=== PATIENT | male | born 1960 | race Caucasian/White ===

== ENCOUNTER 2019-01-19 10:33 | Inpatient (IN) | payer MEDICARE, BC ==
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
[2019-01-19] MEDS: Sodium Chloride 0.9% 10 ML Syringe FLUSH PRN ×4 (11:39→13:50)
[2019-01-19] MEDS ORDERED: Morphine 4 MG/ML Syringe IVPUSH ONE (12:07)
[2019-01-19] MEDS ORDERED: fentaNYL 100 MCG/2 ML SDV IVPUSH ONE (12:10)
[2019-01-19] MEDS ORDERED: Lidocaine 5% 700 MG Patch TOP ONE (12:11)
--- NOTE | 2019-01-19 12:31 | CR ---
CHEST: 2 view CLINICAL HISTORY:SOB COMPARISON:None FINDINGS: The heart is enlarged. Pulmonary vascular areas cephalized. There is a diffuse left perihilar infiltrate. There is some mild increase in the right lung markings. No effusions are seen. Impression: Moderate cardiomegaly with some vascular cephalization Prominent interstitial lung markings as well as a left perihilar alveolar infiltrate or edema. This may represent left lung pneumonia alone. Asymmetric pulmonary edema from CHF is not excluded .Clinical correlation necessary
[2019-01-19] MEDS ORDERED: Albuterol 0.083% 2.5 MG/3 ML Neb Soln NEB ONE (12:37)
[2019-01-19] MEDS ORDERED: Sodium Chloride 0.9% 100 ML IV SCH (12:45)
[2019-01-19] MEDS ORDERED: Iopamidol 755 Mg/ML 100 ML Bottle IV SCH (12:45)
[2019-01-19] MEDS ORDERED: Diltiazem 25 MG/5 ML SDV IVPUSH ONE (12:58)
[2019-01-19] MEDS: Furosemide 40 MG/4 ML VIAL ONE ×2 (13:39→13:44)
--- NOTE | 2019-01-19 14:10 | CT ---
Ang Chest CLINICAL HISTORY: Elevated d-dimer TECHNIQUE: Thin section axial contiguous tomographic sections were taken through the chest before and after 75 mL bolus IV iodinated contrast administration. Coronal and sagittal images were reconstructed. Prescribed dose FINDINGS: There are diffuse patchy bilateral pulmonary infiltrates and some groundglass opacifications. There is pleural-parenchymal scarring in the right lung base The heart is moderately enlarged. There is left atrial and left ventricular enlargement. No pulmonary embolus is identified. The aorta is less than optimally opacified. There are some atheromatous changes without the aneurysm or dissection is a 1.6 cm lymph node in the aortopulmonic window with an adjacent 2.1 cm node. The right paratracheal region is a 2.3 x 1.7 cm lymph node. IMPRESSION: Diffuse bilateral pulmonary infiltrates most notable in the left upper lobe. There are scattered patchy groundglass opacifications. These are all new since prior study this could represent diffuse pneumonia or pneumonitis. Atypical distribution pulmonary edema is felt less likely Nonspecific mediastinal lymphadenopathy described above Moderate cardiomegaly No evidence of pulmonary embolus Moderate atheromatous changes in the aorta Pleural thickening and pleural parenchymal scarring right lower lobe. Underlying pleural-based neoplasm cannot be excluded
[2019-01-19] MEDS ORDERED: Azithromycin 250 MG Tab PO ONE (14:29)
[2019-01-19] MEDS ORDERED: cefTRIAXone 2 GM in Sodium Chloride 0.9% 50 ML IV SCH (14:30)
--- NOTE | 2019-01-19 16:19 | PCM.HP ---
H&P History of Present Illness - General Date of Service: 01/19/19 Admit Problem/Dx: Admission Diagnosis/Problem Admission Diagnosis/Problem CHF, Congestive heart failure Source of Information: Patient, Provider History Limitations: Reports: No Limitations - History of Present Illness Initial Comments - Free Text/Narative: CC: I can't catch my breath HPI: Chas presented to the emergency room today with more than 2 weeks of progressive shortness of breath. He reports onset of symptoms that were initially fairly mild. He was only short of breath after some exertion. He had some tightness in his chest at that time but no reports of chest pain. Over the past 2+ weeks his shortness of breath has increased to the point that he is now short of breath even at rest. Shortness of breath increases when he bends over to tie his shoes. He does not report any chest pain and has not had chest pressure. No reports of orthopnea. He does have some mild lower extremity edema on the left leg. His prosthesis on the right fits like normal. He has an occasional dry cough. He thinks maybe he's had a couple of different days with fever but very minimal. He has not had any sputum production. Appetite has been slowly decreasing over the past 2 weeks. He does not check his weight regularly. No sick contacts or travel. No change in bowel or bladder habits. Workup in the emergency room was suggestive of congestive heart failure. He was also in atrial fibrillation with a rapid ventricular response. He has received furosemide and will be started on a diltiazem infusion. Antibiotic coverage with ceftriaxone and azithromycin. Chest x-ray/CT scan suggestive of asymmetric pulmonary edema versus atypical pneumonia. l hip Pain Score (Numeric/FACES): 2 - Related Data Allergies/Adverse Reactions: Allergies Allergy/AdvReac Type Severity Reaction Status Date / Time No Known Allergies Allergy Verified 01/19/19 10:49 Home Medications: Home Meds Tamsulosin [Tamsulosin 24 Hr] 0.4 mg PO DAILY 01/19/19 [History] Past Medical History Cardiovascular History: Reports: High Cholesterol, Hypertension Genitourinary History: Reports: Prostate Disorder Musculoskeletal History: Reports: Fracture, Other (See Below) Other Musculoskeletal History: ankle wrist Hematologic History: Reports: Blood Transfusion(s) Dermatologic History: Reports: Other (See Below) Other Dermatologic History: joshi 1979 - Infectious Disease History Infectious Disease History: Reports: Chicken Pox, Measles - Past Surgical History Male Surgical History: Reports: Kidney Stone Extraction Dermatological Surgical History: Reports: Plastic Surgical Reconstruction/Repair , Skin Graft Social & Family History - Family History Cardiac: Reports: Heart Failure (father) - Tobacco Use Smoking Status *Q: Current Every Day Smoker Years of Tobacco use: 40 Packs/Tins Daily: 1 Used Tobacco, but Quit: No Second Hand Smoke Exposure: Yes - Caffeine Use Caffeine Use: Reports: Tea - Alcohol Use Days Per Week of Alcohol Use: 0 - Recreational Drug Use Recreational Drug Use: No H&P Review of Systems - Review of Systems: Review Of Systems: See Below Free Text/Narrative: A complete 12 point review of systems was obtained. Pertinent positives and negatives are noted in the history of present illness. All other systems were reviewed and were negative except as noted. Exam - Exam Exam: See Below - Vital Signs Vital Signs: Last Vital Signs Temp 35.9 C 01/19/19 10:56 Pulse 71 01/19/19 15:27 Resp 25 H 01/19/19 15:27 BP 124/84 01/19/19 15:27 Pulse Ox 94 L 01/19/19 15:27 Weight: 110.3 kg - Exam Quality Assessment: No: Supplemental Oxygen General: Alert, Oriented, Cooperative, Mild Distress (mild increased work of breathing ) HEENT: Conjunctiva Clear. No: Mucosa Moist & [place], Scleral Icterus Neck: Supple, Trachea Midline, JVD. No: Lymphadenopathy Lungs: Normal Respiratory Effort, Crackles (mild both bases) Cardiovascular: Irregular Rhythm, Tachycardia, Gallop/S3. No: Systolic Murmur GI/Abdominal Exam: Normal Bowel Sounds, Soft, Non-Tender, No Distention Back Exam: No: Normal Inspection (skin graft right lower back ) Extremities: Pedal Edema (left lower leg from mid alvarez distally ), Other (right AKA). No: Increased Warmth Skin: Warm, Dry, Other (multiple old skin grafts on face, arms and chest ) Neuro Extensive - Mental Status: Alert, Oriented x3, Nl Response to Commands Neuro Extensive - Motor, Sensory, Reflexes: No: Dysarthria, Abnormal Motor, Tremor Psychiatric: Alert, Normal Affect - Patient Data Lab Results Last 24 hrs: Laboratory Results - last 24 hr 01/19/19 01/19/19 01/19/19 Range/Units 11:20 11:20 11:20 WBC 9.3 (4.5-11.0) K/uL RBC 4.22 L (4.30-5.90) M/uL Hgb 13.8 (12.0-15.0) g/dL Hct 40.4 (40.0-54.0) % MCV 96 (80-98) fL MCH 33 H (27-31) pg MCHC 34 (32-36) % Plt Count 130 L (150-400) K/uL Neut % (Auto) 64 (36-66) % Lymph % (Auto) 22 L (24-44) % [place] % (Auto) 12 H (2-6) % Eos % (Auto) 1 L (2-4) % Baso % (Auto) 1 (0-1) % PT 12.4 H (9.5-12.0) sec INR 1.14 (0.80-1.20) D-Dimer, Quantitative 1120 H (0.0-400.0) ng/mL Puncture Site ABG pH (7.350-7.450) ABG pCO2 (35.0-42.0) mmHg ABG pO2 (75.0-100.0) mmHg ABG HCO3 (22.0-26.0) mmol/L ABG Total CO2 (23.0-27.0) mmol/L ABG O2 Saturation (95.0-98.0) % ABG O2 Content (15.0-23.0) %vol ABG Base Excess mm/L ABG Hemoglobin (13.5-18.0) g/dL ABG Oxyhemoglobin % ABG Carboxyhemoglobin (0.0-1.6) % ABG Methemoglobin % Ryan Test O2 Delivery Device Sodium 136 L (140-148) mmol/L Potassium 3.4 L (3.6-5.2) mmol/L Chloride 100 (100-108) mmol/L Carbon Dioxide 27 (21-32) mmol/L Anion Gap 12.4 (5.0-14.0) mmol/L BUN 20 H (7-18) mg/dL Creatinine 0.8 (0.8-1.3) mg/dL Est Cr Clr Drug Dosing 110.47 mL/min Estimated GFR (MDRD) > 60 (>60) Glucose 96 (74-106) mg/dL Calcium 8.8 (8.5-10.1) mg/dL Magnesium (1.8-2.4) mg/dL Total Bilirubin 1.1 H (0.2-1.0) mg/dL AST 46 H (15-37) U/L ALT 70 (12-78) U/L Alkaline Phosphatase 84 (46-116) U/L Troponin I 0.029 (0.000-0.056) ng/mL C-Reactive Protein (0.0-0.3) mg/dL NT-Pro-B Natriuret Pep 2906 H (5-125) pg/mL Total Protein 6.6 (6.4-8.2) g/dL Albumin 3.2 L (3.4-5.0) g/dL Globulin 3.4 (2.3-3.5) g/dL Albumin/Globulin Ratio 0.9 L (1.2-2.2) 01/19/19 01/19/19 01/19/19 Range/Units 11:30 11:42 12:37 WBC (4.5-11.0) K/uL RBC (4.30-5.90) M/uL Hgb (12.0-15.0) g/dL Hct (40.0-54.0) % MCV (80-98) fL MCH (27-31) pg MCHC (32-36) % Plt Count (150-400) K/uL Neut % (Auto) (36-66) % Lymph % (Auto) (24-44) % [place] % (Auto) (2-6) % Eos % (Auto) (2-4) % Baso % (Auto) (0-1) % PT (9.5-12.0) sec INR (0.80-1.20) D-Dimer, Quantitative (0.0-400.0) ng/mL Puncture Site Lt radial ABG pH 7.533 H (7.350-7.450) ABG pCO2 26.5 L (35.0-42.0) mmHg ABG pO2 77.8 (75.0-100.0) mmHg ABG HCO3 22.2 (22.0-26.0) mmol/L ABG Total CO2 19.1 L (23.0-27.0) mmol/L ABG O2 Saturation 96.5 (95.0-98.0) % ABG O2 Content 18.4 (15.0-23.0) %vol ABG Base Excess 1.1 mm/L ABG Hemoglobin 13.8 (13.5-18.0) g/dL ABG Oxyhemoglobin 94.8 % ABG Carboxyhemoglobin 1.2 (0.0-1.6) % ABG Methemoglobin 0.6 % Ryan Test Passed O2 Delivery Device Room air Sodium (140-148) mmol/L Potassium (3.6-5.2) mmol/L Chloride (100-108) mmol/L Carbon Dioxide (21-32) mmol/L Anion Gap (5.0-14.0) mmol/L BUN (7-18) mg/dL Creatinine (0.8-1.3) mg/dL Est Cr Clr Drug Dosing mL/min Estimated GFR (MDRD) (>60) Glucose (74-106) mg/dL Calcium (8.5-10.1) mg/dL Magnesium 2.0 (1.8-2.4) mg/dL Total Bilirubin (0.2-1.0) mg/dL AST (15-37) U/L ALT (12-78) U/L Alkaline Phosphatase (46-116) U/L Troponin I (0.000-0.056) ng/mL C-Reactive Protein 10.59 H (0.0-0.3) mg/dL NT-Pro-B Natriuret Pep (5-125) pg/mL Total Protein (6.4-8.2) g/dL Albumin (3.4-5.0) g/dL Globulin (2.3-3.5) g/dL Albumin/Globulin Ratio (1.2-2.2) Result Diagrams: 01/19/19 11:20 01/19/19 11:20 Imaging Impressions Last 24 hrs: CXR - images personally reviewed - mild cardiomegally, interstitial infiltrates on the left (fluid vs infection). No mass or effusion CT chest - images personally reviewed - no PE. Cardiomegally. there are asymmetric interstitial infiltrates left > right (fluid vs infection). pleural thickening right lower lobe. EKG INTERPRETATION EKG Date: 01/19/19 Rhythm: A-Fib Rate (Beats/Min): 114 [place]: Normal P-Wave: Variable QRS: Normal ST-T: Other (inverted T in V5 and V6) Comparison: NA - No Prior EKG EKG Interpretation Comments: Image personally reviewed *Q Meaningful Use (ADM) - VTE Risk Assess *Q Each Risk Factor Represents 1 Point: Age 41 - 59 years, Obesity ( BMI > 25 kg/m2 ), Congestive heart failure (CHF) Total Score 1 Point Risk Factors: 3 Each Risk Factor Represents 2 Points: None Total Score 2 Point Risk Factors: 0 Each Risk Factor Represents 3 Points: None Total Score 3 Point Risk Factors: 0 Each Risk Factor Represents 5 Points: None Total Score 5 Point Risk Factors: 0 Venous Thromboembolism Risk Factor Score *Q: 3 - Problem List (1) CHF (congestive heart failure) SNOMED Code(s): 24506361 ICD Code: I50.9 - HEART FAILURE, UNSPECIFIED Status: Acute Priority: Medium Current Visit: Yes Problem Details: secondary to a fib Qualifiers: Heart failure type: unspecified Heart failure chronicity: acute Qualified Code(s): I50.9 - Heart failure, unspecified (2) Atrial fibrillation with RVR SNOMED Code(s): 032188423007670 ICD Code: I48.91 - UNSPECIFIED ATRIAL FIBRILLATION Status: Acute Current Visit: Yes (3) CAP (community acquired pneumonia) SNOMED Code(s): 052659141 ICD Code: J18.9 - PNEUMONIA, UNSPECIFIED ORGANISM Status: Acute Current Visit: Yes Qualifiers: Laterality: unspecified laterality Qualified Code(s): J18.9 - Pneumonia, unspecified organism Problem List Initiated/Reviewed/Updated: Yes Orders Last 24hrs: Active Orders 24 hr Category Date Time Status Patient Status Manage Transfer [TRANSFER] Routine ADT 01/19/19 16:05 Ordered Cardiac Monitoring [RC] .As Directed Care 01/19/19 11:09 Active EKG Documentation Completion [RC] ASDIRECTED Care 01/19/19 11:10 Active Height and Weight [RC] UPON Care 01/19/19 12:41 Active Peripheral IV Care [RC] . DIRECTED Care 01/19/19 11:10 Active RT Aerosol Therapy [RC] ASDIRECTED Care 01/19/19 12:37 Active Diltiazem 125MG in D5W @ 5 MG/HR(125ml) Med 01/19/19 16:15 Ordered Diltiazem 125 mg Dextrose 5% in Water 100 ml IV TITRATE Furosemide [Lasix] Med 01/20/19 12:43 Once 40 mg IVPUSH ONETIME ONE Sodium Chloride 0.9% [Saline Flush] Med 01/19/19 11:09 Active 10 ml FLUSH ASDIRECTED PRN cefTRIAXone [Rocephin] 2 gm Med 01/19/19 14:30 Active Sodium Chloride 0.9% [Normal Saline] 50 ml IV Q24H Peripheral IV Insertion Adult [OM.PC] Stat Oth 01/19/19 11:09 Ordered Resuscitation Status Routine Resus Stat 01/19/19 16:06 Ordered EKG 12 Lead [EK] Stat Ther 01/19/19 11:09 Ordered Medication Orders Furosemide (Lasix) 40 mg IVPUSH ONETIME ONE Stop: 01/20/19 12:44 Last Admin: 01/19/19 13:41 Dose: 40 mg Ceftriaxone Sodium 2 gm/ (Sodium Chloride) 50 mls @ 100 mls/hr IV Q24H DARIEN Last Admin: 01/19/19 15:20 Dose: 100 mls/hr Diltiazem HCl 125 mg/ Dextrose (/Water) 125 mls @ 5 mls/hr IV TITRATE DARIEN; Protocol Sodium Chloride (Saline Flush) 10 ml FLUSH ASDIRECTED PRN PRN Reason: Keep Vein Open Last Admin: 01/19/19 13:50 Dose: 10 ml Admin: 01/19/19 11:39 Dose: 10 ml Assessment/Plan Comment:: ASSESSMENT AND PLAN - Congestive heart failure - unknown ejection fraction. Complicated story with probable pneumonia as well as rapid atrial fibrillation and it's unclear which event led to the difficulties. Obvious evidence for volume overload. Not currently hypoxic but he is somewhat tachypnea. He has received furosemide in the emergency room. -Atrial fibrillation management as below -Repeat Lasix dosing in the morning unless he has more respiratory difficulty tonight -Consider beta andrew once more euvolemic -Echo in the morning Atrial fibrillation with rapid ventricular response - unknown duration. Patient does not experience palpitations. May have been present for up to 2 weeks. No history of heart disease or dysrhythmia. Electrolytes are acceptable other than mildly low potassium. -Diltiazem infusion -Cardiac monitoring -Supplement potassium Atypical community-acquired pneumonia - patchy bilateral infiltrates that based on CT scan could be asymmetric edema or atypical pneumonia. CRP is elevated at more than 10 and I suspect there is a component of pneumonia along with his congestive heart failure. -Ceftriaxone and azithromycin -Blood cultures if he spikes a fever -Supplement oxygen if he becomes hypoxic BPH - symptoms are stable. -Continue tamsulosin Maintenance issues - - DVT prophylaxis - enoxaparin - GI prophylaxis - not indicated - Nutrition - low sodium - English catheter - not indicated CODE STATUS - full code Admission justification - This patient will be admitted for inpatient services and is medically appropriate meeting medical necessity for inpatient admission as outlined in my documentation. I reasonably expect the patient will require inpatient services that span a period time over 2 midnights. I reasonably expect this patient to be discharged or transferred within 96 hours after admission to the [facility]. Disposition - I would anticipate discharge home after the hospital stay Primary care physician - Dr Oc Phipps M.D.
[2019-01-19] MEDS ORDERED: Enoxaparin 40 MG/0.4 ML Syringe SUBCUT SCH (17:00)
[2019-01-19] MEDS ORDERED: Albuterol 0.083% 2.5 MG/3 ML Neb Soln NEB PRN (17:01)
[2019-01-19] MEDS ORDERED: Sodium Chloride 0.9% 1,000 ML IV SCH (17:01)
[2019-01-19] MEDS ORDERED: Ondansetron 4 MG Tab.DIS PO PRN (17:01)
[2019-01-19] MEDS ORDERED: Acetaminophen 325 MG Tab PO PRN (17:01)
[2019-01-20] MEDS ORDERED: Furosemide 40 MG/4 ML VIAL IVPUSH ONE ×3 (07:00→12:43)
[2019-01-20] MEDS ORDERED: Tamsulosin 0.4 MG Cap.ER PO SCH (09:00)
[2019-01-20] MEDS ORDERED: Azithromycin 250 MG Tab PO SCH (09:00)
[2019-01-20] MEDS ORDERED: Potassium Chloride 20 MEQ Tab.ER PO ONE (10:00)
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
[2019-01-20] MEDS ORDERED: cefTRIAXone 2 GM in Sodium Chloride 0.9% 50 ML IV SCH (15:00)
== END 2019-01-20 11:57 | DRG 293 ==
LOC: JP.ED 10:33 → JP.ICU 16:05
PROVIDERS: ADMIT Internal Medicine; ATTEND Internal Medicine
DX: I11.0 Hypertensive heart disease with heart failure (principal); I50.9 Heart failure, unspecified; I48.91 Unspecified atrial fibrillation; F17.210 Nicotine dependence, cigarettes, uncomplicated; R06.03 Acute respiratory distress; J18.9 Pneumonia, unspecified organism; Z89.611 Acquired absence of right leg above knee; R79.1 Abnormal coagulation profile; R07.89 Other chest pain; R06.02 Shortness of breath; E87.6 Hypokalemia; I34.0 Nonrheumatic mitral (valve) insufficiency; E78.00 Pure hypercholesterolemia, unspecified; G47.33 Obstructive sleep apnea (adult) (pediatric); N40.0 Benign prostatic hyperplasia without lower urinary tract symptoms; Z87.898 Personal history of other specified conditions
CPT/HCPCS: 36415; 36600; 71046 ×2; 71275 ×2; 80053; 82803; 83735; 83880; 84484; 85025; 85379; 85610; 86140; 93005; 94640; 96365; 96375; 99285; A9270; J0696; J1940; J3490; J7030; J7050; Q9967; 80048; 85027; 93306; J1650; J7060